=== PATIENT | male | born 1980 | race Two or more races ===

== ENCOUNTER 2020-06-20 09:50 | Emergency (ER) | payer SELFPAY ==
[2020-06-20] MEDS ORDERED: HYDROCODONE/ACETAMINOPHEN 5-325 MG TABLET PO ONE (10:25)
[2020-06-20] MEDS ORDERED: DIPH/PERTUSS(ACELL)/TETANUS VAC/PF 0.5 ML SYR (>=10YO) IM ONE (10:25)
--- NOTE | 2020-06-20 10:27 | ER Document Report ---
ED Medical Screen (RME) - General Chief Complaint: Finger Injury Stated Complaint: NAIL IN LEFT MIDDLE FINGER Time Seen by Provider: 06/20/20 10:22 Mode of Arrival: Ambulatory Information source: Patient Notes: HPI; 40-year-old male presents to the emergency room with a nail in his left middle finger. Patient states he was helping a friend moving when his friend accidentally shot a nail into his left middle finger with a nail gun. Unknown last tetanus shot. Patient is right-handed. PE: Alert and oriented x3. Lungs: Clear to auscultation without rales, rhonchi or wheeze. Heart: Regular rate rhythm without murmurs, rubs, gallops. There is an nail in the left middle finger. No bleeding. I have greeted and performed a rapid initial assessment of this patient. A comprehensive ED assessment and evaluation of the patient, analysis of test results and completion of the medical decision making process will be conducted by additional ED providers. I have specifically instructed the patient or family members with the patient to immediately return to any nursing staff should anything change in the patient's condition or with their chief complaint. TRAVEL OUTSIDE OF THE [place] IN LAST 30 DAYS: No Physical Exam - Vital signs Vitals: Temp Pulse Resp BP Pulse Ox 98.1 F 97 20 170/92 H 98 06/20/20 10:10 06/20/20 10:10 06/20/20 10:10 06/20/20 10:10 06/20/20 10:10 Course - Vital Signs Vital signs: Temp Pulse Resp BP Pulse Ox 98.1 F 97 20 170/92 H 98 06/20/20 10:10 06/20/20 10:10 06/20/20 10:10 06/20/20 10:10 06/20/20 10:10
--- NOTE | 2020-06-20 10:50 | RADIOLOGY REPORT (SQ) ---
EXAM DESCRIPTION: FINGER LEFT IMAGES COMPLETED DATE/TIME: 06/20/2020 10:40 am REASON FOR STUDY: injury left middle finger COMPARISON: None. NUMBER OF VIEWS: Three views. TECHNIQUE: AP, lateral, and oblique images acquired of the left third finger. LIMITATIONS: None. FINDINGS: MINERALIZATION: Normal. BONES: 3.7 cm nail overlies the 3rd mid phalanx. Associated cortical defect along the volar aspect o f the proximal phalanx compatible fracture. No significant displacement. No additional fractures. SOFT TISSUES: Soft tissue swelling about the 3rd digit. Foreign body as above. OTHER: No other significant finding. IMPRESSION: 3.7 cm nail overlies mid 3rd phalanx with associated phalanx fracture compatible with in traosseous foreign body. No significant osseous displacement. No additional fractures. TECHNICAL DOCUMENTATION: JOB ID: [id number] 2010 [employer]- All Rights Reserved Reading location - IP/workstation name: [email or web address]
[2020-06-20] MEDS ORDERED: CEFAZOLIN 2 GM/D5W RTU 2 GM/50 ML RTUPB IV ONE (11:28)
[2020-06-20] MEDS ORDERED: BUPIVACAINE HCL 0.5 % INJ/PF 30 ML SDV INJ ONE (11:28)
[2020-06-20] MEDS ORDERED: LIDOCAINE 1% INJ-PF (10 MG/ML) 30 ML SDV INJ ONE (11:53)
--- NOTE | 2020-06-20 12:25 | ER Document Report ---
ED Hand/Wrist Injury - General Chief Complaint: Finger Injury Stated Complaint: NAIL IN LEFT MIDDLE FINGER Time Seen by Provider: 06/20/20 10:22 Mode of Arrival: Ambulatory Notes: CHIEF COMPLAINT: Nail through finger HPI: 40-year-old male presenting for evaluation of a nito nail through the left third finger. Patient states they were working on flashing on the roof and another individual shot the nail through his finger. Patient not sure about tetanus status. Complains of pain at the site. Denies numbness or tingling in the fingertip ROS: See HPI - all other systems were reviewed and are otherwise negative Constitutional: no fever Integumentary: no rash Allergy: no hives Musculoskeletal: + extremity pain or swelling Neurological: no numbness/tingling, no weakness MEDICATIONS: I agree with the patient medications as charted by the RN. ALLERGIES: I agree with the allergies as charted by the RN. PAST MEDICAL HISTORY/PAST SURGICAL HISTORY: Reviewed and agree as charted by RN. SOCIAL HISTORY: Reviewed and agree as charted by RN. FAMILY HISTORY: No significant familial comorbid conditions directly related to patient complaint EXAM: Reviewed vital signs as charted by RN. CONSTITUTIONAL: Alert and oriented and responds appropriately to questions. Well-appearing; well-nourished HEAD: Normocephalic; atraumatic EYES: Conjunctivae clear, sclerae non-icteric ENT: normal nose; no rhinorrhea; moist mucous membranes NECK: Supple without meningismus CARD: symmetric distal pulses RESP: Normal chest excursion without splinting or tachypnea ABD/GI: non-distended BACK: The back appears normal EXT: Normal ROM in all joints; no cyanosis, no effusions, no edema. There is a nito nail inserted from the dorsal aspect to the volar aspect through the middle of the proximal phalanx of the left third finger distal to the PIP joint space region. He is able to flex and extend the finger at the PIP joint space region. Sensation is intact in the distal tip of the finger with capillary refill less than 3 seconds. SKIN: Normal color for age and race; warm; dry; good turgor NEURO: Moves all extremities equally; Motor and sensory function intact PSYCH: The patient's mood and manner are appropriate. Grooming and personal hygiene are appropriate. MDM: 40-year-old male with a nito nail through the left third finger. Does not impact the joint space but did go through the bone. There is a fracture on x-ray. Will give patient Ancef as he does have an open fracture technically. Plan to discuss with orthopedics. We will plan to remove the nail. Discussed with Dr. Dwyer attending TRAVEL OUTSIDE OF THE [place] IN LAST 30 DAYS: No - Related Data Allergies/Adverse Reactions: No Known Allergies Allergy (Verified 06/20/20 10:27) Past Medical History - General Information source: Patient - Social History Smoking Status: Never Smoker Chew tobacco use (# tins/day): No Frequency of alcohol use: None Drug Abuse: None Family History: Reviewed & Not Pertinent Physical Exam - Vital signs Vitals: Temp Pulse Resp BP Pulse Ox 98.1 F 97 20 170/92 H 98 06/20/20 10:10 06/20/20 10:10 06/20/20 10:10 06/20/20 10:10 06/20/20 10:10 Course - Re-evaluation Re-evalutation: 06/20/20 12:52 The nail was removed without difficulty. The wound was irrigated and scrubbed and cleaned. I sent the patient back for x-ray and radiologist has called that there is a residual metallic foreign body in the wound area in the bone. I have placed a call to Dr. Cox orthopedics. Discussed with Dr. Dwyer attending. 06/20/20 12:[address] Cox, Orthopedics. He reviewed the images. He indicates that he does see the entrapped foreign body. He indicates that he does not need to take the patient to surgery to remove this or wash it out today. He indicates that this will either get infected or well. He indicates that I should place the patient on Keflex for 7 days. Will follow the patient in the office. 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 Patient's Egyptian is good. He understands the instructions. He understands if there is a retained foreign body that may or may not get infected and he un derstands the importance of close follow-up with orthopedics to ensure that he does not injure any disability from loss of use of the finger if it does become infected by following up closely. Patient was evaluated by Dr. Dwyer attending. 06/20/20 13:08 Procedure note: Digital block with 3 cc of 0.5% bupivacaine at the base of the left third finger. Incremental injection. The wound was cleaned with Betadine. The nail was removed intact from the left third finger with sterile forceps. The wound was irrigated and scrubbed with Betadine and saline. Patient tolerated well. X-ray will be obtained to delineate any retained foreign body or fracture - Vital Signs Vital signs: Temp Pulse Resp BP Pulse Ox 98.1 F 97 20 170/92 H 98 06/20/20 10:10 06/20/20 10:10 06/20/20 10:10 06/20/20 10:10 06/20/20 10:10 - Laboratory Results Critical Laboratory Results Reviewed: No Critical Results - Radiology Results Critical Radiology Results Reviewed: Yes Attending or Supervising Physician who Reviewed Radiology: MITCHELL DWYER ret. follow up orthopedics Discharge - Discharge Clinical Impression: Foreign body of finger of left hand Qualifiers: Encounter type: initial encounter Qualified Code(s): S60.459A - Superficial foreign body of unspecified finger, initial encounter Condition: Stable Disposition: HOME, SELF-CARE Instructions: Dressing Instructions for Open Wounds ([facility]) Additional Instructions: Follow-up closely with the orthopedic physicians within the next 3 to 4 days and office call for appointment. Take the medications as prescribed no working on roofs if you are taking narcotics as this may predispose you to a fall. There was a retained foreign body in the wound as discussed and this will need to be reevaluated by orthopedics. We did discuss this with them prior to your dis charge today. Prescriptions: Cephalexin Monohydrate [Keflex 500 mg Capsule] 500 mg PO Q6H 7 Days #28 capsule Oxycodone HCl/Acetaminophen [Percocet 5-325 mg Tablet] 1 tab PO Q4H PRN #15 tab PRN Reason: Referrals: SARAH COX MD [ACTIVE STAFF] - Follow up as needed
--- NOTE | 2020-06-20 12:56 | RADIOLOGY REPORT (SQ) ---
EXAM DESCRIPTION: FINGER LEFT IMAGES COMPLETED DATE/TIME: 06/20/2020 12:41 pm REASON FOR STUDY: post FB removal third finger COMPARISON: None. NUMBER OF VIEWS: Three views. TECHNIQUE: AP, lateral, and oblique images acquired of the left third finger. LIMITATIONS: None. FINDINGS: MINERALIZATION: Normal. BONES: Interval removal of the radiopaque nail. There is a residual 6 x 1 mm radiopaque density over lying the proximal 3rd middle phalanx. Cortical destruction again identified without discrete additi onal fracture. SOFT TISSUES: Soft tissue swelling and subcutaneous gas about the 3rd digit. Foreign body as above. OTHER: No other significant finding. IMPRESSION: Interval removal of the intraosseous nail at the 3rd middle phalanx. Residual 6 x 1 mm metallic radiodensity overlying proximal 3rd middle phalanx compatible with residual foreign body. TECHNICAL DOCUMENTATION: JOB ID: [id number] 2010 [employer]- All Rights Reserved Reading location - IP/workstation name: [email or web address]
--- NOTE | 2020-06-20 13:16 | ER Document Report ---
Doctor's Note Notes: 06/20/20 13:13 This is a 40-year-old male I was asked see along with nurse practitioner. I have reviewed all pertinent imaging and notes in the chart and have examined the patient personally at the bedside and obtained supplemental history. Patient sustained a penetrating injury of the intermediate phalanx of the middle finger of the nondominant left hand from a pneumatic nito gun being operated by one of his coworkers just prior to arrival here. Nurse practitioner has performed a digital block and removed to the nail. Patient is pain-free at this time as result of the digital block. His distal neurovascular status appears to be intact. Imaging shows presence of the nail on the initial film. After this was removed there is some retained metal fragment within the intermediate phalanx. There is no apparent involvement of the joint space. Patient is already received IV antibiotics. Tetanus booster is up-to-date. Dr. Cox from orthopedics has reviewed the images and recommends splinting, oral antibiotics and outpatient follow-up. I spoke with the patient and advised him of the plan and told him to return here immediately for any signs of infection. He fully understands this and will follow up with orthopedics in the office.
[2020-06-20 13:38] VITALS: BP 148/92
== END 2020-06-20 13:39 | disposition home or self-care (01) ==
LOC: ER 09:50
DX: S62.603A Fracture of unspecified phalanx of left middle finger, initial encounter for closed fracture (principal); S61.243A Puncture wound with foreign body of left middle finger without damage to nail, initial encounter; W29.4XXA Contact with nail gun, initial encounter; Y93.H3 Activity, building and construction; Y92.009 Unspecified place in unspecified non-institutional (private) residence as the place of occurrence of the external cause; Z23 Encounter for immunization
CPT/HCPCS: 99284; 90471; 96365; 73140; 90715; 64450; J3490; J0690